=== PATIENT | male | born 1995 | race Caucasian/White ===

== ENCOUNTER 2020-09-02 13:30 | Emergency (ER) | payer MEDICAID ==
[~2020-09-02] VITALS: Ht 172.7 cm; Wt 72.7 kg
[~2020-09-02 13:30] MED LIST: LIT300C PO
[2020-09-02 13:32] VITALS: BP 120/74
== END 2020-09-02 14:36 | disposition home or self-care (01) ==
LOC: ER 13:30
DX: Z00.8 Encounter for other general examination (principal); F15.90 Other stimulant use, unspecified, uncomplicated; J45.909 Unspecified asthma, uncomplicated; F41.9 Anxiety disorder, unspecified; F12.90 Cannabis use, unspecified, uncomplicated; Z79.899 Other long term (current) drug therapy
CPT/HCPCS: 99281

== ENCOUNTER 2021-03-09 14:50 | Emergency (ER) | payer BC, MEDICAID ==
[~2021-03-09] VITALS: Ht 172.7 cm; Wt 75.0 kg
[~2021-03-09 14:50] MED LIST changes: +OLAN20TA34 PO
[2021-03-09 15:52] VITALS: BP 112/71
== END 2021-03-09 17:50 | disposition home or self-care (01) ==
LOC: ER 14:50
DX: R55 Syncope and collapse (principal); J45.909 Unspecified asthma, uncomplicated; F41.9 Anxiety disorder, unspecified; F12.90 Cannabis use, unspecified, uncomplicated; F15.90 Other stimulant use, unspecified, uncomplicated; Z79.899 Other long term (current) drug therapy
CPT/HCPCS: 99281

== ENCOUNTER 2021-03-16 06:09 | Day surgery (SDC) | payer BC, MEDICAID ==
[2021-03-09 14:55] LABS: BASOPHILS % (AUTO) 1.1 % (0-1); EOSINOPHILS % (AUTO) 0.7 % (0-6); LYMPHOCYTES # (AUTO) 1.3 X10'3 (1.1-4.8); LYMPHOCYTES % (AUTO) 33.4 % (21-51); MEAN CORPUSCULAR HEMOGLOBIN 28.8 PG (27.0-31.0); MEAN CORPUSCULAR HGB CONC 34.5 g/dL (33.0-36.5); MEAN CORPUSCULAR VOLUME 83.4 FL (78-98); MEAN PLATELET VOLUME 8.4 FL (7.4-10.4); MONOCYTES # (AUTO) 0.4 X10'3 (0-0.9); MONOCYTES % (AUTO) 9.5 % (2-12); NEUTROPHILS # (AUTO) 2.2 X10'3 (1.8-7.7); NEUTROPHILS % (AUTO) 55.3 % (42-75); PRE OP HEMATOCRIT 45.3 % (42.0-52.0); PRE OP HEMOGLOBIN 15.6 g/dL (14.0-17.9); PRE OP PLATELET COUNT 225 X10'3 (140-440); RED BLOOD COUNT 5.43 X10'6 (4.70-6.10); RED CELL DISTRIBUTION WIDTH 12.7 % (11.5-14.5)
[2021-03-09 15:08] LABS: PRE OP PROTIME 10.8 SECONDS (9.0-12.0)
[2021-03-09 15:13] LABS: ALBUMIN 4.2 G/DL (3.4-5.0); ALBUMIN/GLOBULIN RATIO 1.3 (1.1-1.5); ALKALINE PHOSPHATASE 45 IU/L (46-116); BLOOD UREA NITROGEN 14 MG/DL (7-18); BUN/CREATININE RATIO 18.2 (5.4-32.0); CHLORIDE 105 MMOL/L (99-107); CREATININE 0.77 MG/DL (0.60-1.10); PRE OP ALT 17 U/L (30-65); PRE OP ANION GAP 10 (8-16); PRE OP AST 20 U/L (10-37); PRE OP BILIRUB, TOTAL 0.4 MG/DL (0.0-1.0); PRE OP GLUCOSE 97 MG/DL (70-104); PRE OP POTASSIUM 3.7 MMOL/L (3.4-5.1); PRE OP SODIUM 142 MMOL/L (135-145); TOTAL CARBON DIOXIDE 26.9 MMOL/L (24-32); TOTAL PROTEIN 7.4 G/DL (6.4-8.2); eGFR > 90 ML/MIN
[~2021-03-16] VITALS: Ht 172.7 cm; Wt 66.9 kg
[2021-03-16] VITALS (13 sets, daily range): BP systolic 115–149; BP diastolic 59–100
[~2021-03-16 06:09] MED LIST changes: -LIT300C PO; +diazepam 5mg tablet PO PRN; +famotidine 20mg tablet PO ONE; +oxymetazoline 15 ML nasal spray NS PRN; +ringers solution, lacted 1,000 ML IV SCH
[2021-03-16] MEDS ORDERED: mupirocin 2% ointment 22GM ONE (07:15)
[2021-03-16] MEDS ORDERED: LIDOcaine 1% W/epiNEPHrine 1:100,000 20ml vial ONE (07:15)
[2021-03-16] MEDS ORDERED: cocaine 4% topical solution 4ml bottle ONE (07:15)
[2021-03-16] MEDS ORDERED: cefTAZidime 1gm inj ONE (07:16)
[2021-03-16] MEDS ORDERED: oxymetazoline 15 ML nasal spray NS ONE (07:16)
[2021-03-16] MEDS ORDERED: scopolamine 1.5mg patch.TD72 (72-hour patch) TD ONE (07:45)
[2021-03-16] MEDS ORDERED: fentaNYL/PF 50MCG/1 ML 2ML syringe ONE (07:54)
[2021-03-16] MEDS ORDERED: propofol inj 20 ML IV ONE (07:54)
[2021-03-16] MEDS ORDERED: midazolam 1 mg/ML 2ml injection ONE (07:54)
[2021-03-16] MEDS ORDERED: proCHLORperazine 10 MG/2 ml inj IV PRN (08:00)
[2021-03-16] MEDS ORDERED: ringers solution, lacted 1,000 ML IV SCH (08:00)
[2021-03-16] MEDS ORDERED: morphine 4 MG/ML inj SYRINge IV PRN (08:00)
[2021-03-16] MEDS ORDERED: morphine 2 MG/ML inj. syringe IV PRN (08:00)
[2021-03-16] MEDS ORDERED: meperidine/PF 25mg/ml syringe IV PRN ×3 (08:00)
[2021-03-16] MEDS ORDERED: ondansetron/PF 4mg/2ml inj IV PRN (08:00)
[2021-03-16] MEDS ORDERED: scopolamine 1mg/72 hr patch TD ONE (08:04)
[2021-03-16] MEDS ORDERED: sevoflurane 250ml liquid IH ONE (08:06)
[2021-03-16] MEDS ORDERED: ceFAZolin 1000mg inj ONE ×2 (08:28)
[2021-03-16] MEDS ORDERED: dexamethasone sod phosphate 4mg/ml inj. ONE (08:28)
[2021-03-16] MEDS ORDERED: ondansetron/PF 4mg/2ml inj ONE (08:29)
--- NOTE | 2021-03-16 09:42 | NUR ---
Received from OR via [facility] IN STABLE CONDITION, accompanied by Anesthesiologist and LICENSING REGISTRATION EXAMINER report given by Mere. Addendum: 03/16/21 at 1001 by Taylor Woodward RN Amended: Links added.
--- NOTE | 2021-03-16 10:33 | NUR ---
NASAL PACKING REMOVED Addendum: 03/16/21 at 1034 by Taylor Woodward RN Amended: Links added.
[2021-03-16] MEDS ORDERED: salt irrigation nasal spray 45 ML SPRAY NS PRN (11:15)
--- NOTE | 2021-03-16 11:32 | NUR ---
PATIENT DISCHARGED FROM PACU IN STABLE CONDITION AFTER WRITTEN AND VERBAL DISCHARGE INSTRUCTIONS GIVEN. PATIENT GAVE VERBAL UNDERSTANDING OF INSTRUCTIONS GIVEN. PATIENT LEFT FACILITY VIA WHEELCHAIR WITH RN. Addendum: 03/16/21 at 1142 by Taylor Woodward RN Amended: Links added.
== END 2021-03-16 11:32 | disposition home or self-care (01) ==
LOC: PAS 06:09
PROVIDERS: ATTEND Otolaryngology
DX: J34.2 Deviated nasal septum (principal); J34.3 Hypertrophy of nasal turbinates; F41.9 Anxiety disorder, unspecified; F32.9 Major depressive disorder, single episode, unspecified; F20.9 Schizophrenia, unspecified; Z79.01 Long term (current) use of anticoagulants; Z79.899 Other long term (current) drug therapy; Z87.891 Personal history of nicotine dependence; Z98.890 Other specified postprocedural states
CPT/HCPCS: 30140; 30520; 36415; 80053; 82948; 85025; 85576; 85610; 85730; A6402; C1726; C9250; J0690; J0713; J1100; J2175; J2250; J2405; J2704; J3010; J7120; A4618; A7000